=== PATIENT | male | born 1995 | race Caucasian/White ===

== ENCOUNTER 2020-09-07 09:04 | Emergency (ER) | payer MEDICAID ==
[~2020-09-07] VITALS: Ht 177.8 cm; Wt 104.3 kg
[2020-09-07 09:04] VITALS: BP_SYST 170
[2020-09-07 09:31] VITALS: BP_SYST 170
== END 2020-09-07 09:25 | disposition home or self-care (01) ==
LOC: SED 09:04
DX: S51.811A Laceration without foreign body of right forearm, initial encounter (principal); Z88.0 Allergy status to penicillin; W45.8XXA Other foreign body or object entering through skin, initial encounter; Y93.89 Activity, other specified; Y92.89 Other specified places as the place of occurrence of the external cause; Y99.0 Civilian activity done for income or pay
CPT/HCPCS: 99282